=== PATIENT | male | born 1955 | race Caucasian/White ===

== ENCOUNTER 2022-09-13 10:07 | Outpatient (CLI) | payer MEDICARE, BC, SELFPAY | END 2022-09-13 10:08 | disposition home or self-care (01) | LOC: INJ CL 10:08 | PROVIDERS: PCP Family Medicine; Visit Provider Family Medicine | DX: M51.36 Other intervertebral disc degeneration, lumbar region (principal) | CPT/HCPCS: 62323; J0702; Q9966 ==

== ENCOUNTER 2023-01-10 11:49 | Outpatient (CLI) | payer MEDICARE, BC, SELFPAY | END 2023-01-10 11:50 | disposition home or self-care (01) | LOC: RAD 11:50 → INJ CL 12:25 | PROVIDERS: PCP Family Medicine; Visit Provider Family Medicine | DX: M54.16 Radiculopathy, lumbar region (principal); M51.36 Other intervertebral disc degeneration, lumbar region | CPT/HCPCS: 62323; J0702; Q9966 ==

== ENCOUNTER 2024-02-16 07:02 | Outpatient (CLI) | payer MEDICARE, BC, SELFPAY | END 2024-02-16 07:03 | disposition home or self-care (01) | LOC: INJ CL 07:05 | PROVIDERS: PCP Family Medicine; Visit Provider Family Medicine | DX: M54.16 Radiculopathy, lumbar region (principal); M51.36 Other intervertebral disc degeneration, lumbar region | CPT/HCPCS: 62323; J0702; Q9966 ==

== ENCOUNTER 2024-10-29 13:49 | Outpatient (CLI) | payer MEDICARE, BC, SELFPAY | END 2024-10-29 13:50 | disposition home or self-care (01) | LOC: INJ CL 13:51 | PROVIDERS: PCP Family Medicine; Visit Provider Family Medicine | DX: M54.16 Radiculopathy, lumbar region (principal); M51.369 Other intervertebral disc degeneration, lumbar region without mention of lumbar back pain or lower extremity pain | CPT/HCPCS: 62323; J0702; Q9966 ==

== ENCOUNTER 2025-01-14 10:35 | Outpatient (CLI) | payer MEDICARE, BC, SELFPAY | END 2025-01-14 10:36 | disposition home or self-care (01) | LOC: INJ CL 10:35 | PROVIDERS: PCP Family Medicine; Visit Provider Family Medicine | DX: M54.16 Radiculopathy, lumbar region (principal); M48.062 Spinal stenosis, lumbar region with neurogenic claudication | CPT/HCPCS: 64483; 64484; J1100; Q9966 ==